=== PATIENT | male | born 1950 | race Caucasian/White ===

== ENCOUNTER 2018-12-29 09:39 | Emergency (ER) | payer OTHER, MEDICARE ==
--- NOTE | 2018-12-29 10:20 | ER Document Report ---
ED General - General Chief Complaint: Testicular Pain Stated Complaint: TESTICULAR PAIN Time Seen by Provider: 12/29/18 10:04 Primary Care Provider: DANIE SHOOK MD [NO LOCAL MD] - Follow up as needed Notes: 68 male history of prostate cancer status post prostatectomy in 2010 [facility] for chief complaint of left testicular pain x2 weeks. He said it is been intermittent but got acutely worse over the last 2 to 3 days to the point where he needed to seek treatment. He denies any redness, swelling to his testicles. He denies any abnormal penile discharge. He denies any fevers or chills, he denies any lower abdominal pain. He said that it hurts when he will sit up from laying but only intermittently. He states "I have a vigorous sex life with my girlfriend". No other complaints. TRAVEL OUTSIDE OF THE [place] IN LAST 30 DAYS: No - Related Data Allergies/Adverse Reactions: No Known Allergies Allergy (Verified 12/29/18 11:20) Past Medical History - Social History Smoking Status: Unknown if Ever Smoked Family History: None Review of Systems - Review of Systems Constitutional: See HPI EENT: No symptoms reported Cardiovascular: No symptoms reported Respiratory: No symptoms reported Gastrointestinal: See HPI Genitourinary: See HPI Male Genitourinary: See HPI Musculoskeletal: No symptoms reported Skin: No symptoms reported Hematologic/Lymphatic: No symptoms reported Neurological/Psychological: No symptoms reported Physical Exam - Vital signs Vitals: Temp Pulse Resp BP Pulse Ox 98.1 F 82 14 144/88 H 98 12/29/18 09:44 12/29/18 09:44 12/29/18 09:44 12/29/18 09:44 12/29/18 09:44 - Notes Notes: PHYSICAL EXAMINATION: Reviewed vital signs and charting by RN GENERAL: Alert, interacts well. No acute distress. HEAD: Normocephalic, atraumatic. EYES: Pupils equal and round. Extraocular movements intact. ENT: Oral mucosa moist, tongue midline. NECK: Full range of motion. Trachea midline. ABDOMEN: soft, non-tender. No distention. Bowel sounds present : Left testicle high riding partially retracted into the inguinal canal, no redness, no swelling, right testicle is vertical hanging, no tenderness to palpation of bilateral testicles, no redness, inflammation, purulent discharge of the meatus EXTREMITIES: Moves all 4 extremities spontaneously. No edema, No cyanosis. PSYCH: Normal affect, normal mood. SKIN: Warm, dry, normal turgor. No rashes or lesions noted. Course - Re-evaluation Re-evalutation: 12/29/18 10:20 Generally well-appearing. Plan is to order a scrotal ultrasound get some basic blood work and get a urinalysis. 12/29/18 12:48 Ultrasound showed probable epididymitis, no masses or concerning lesions. Lab work all normal. - Vital Signs Vital signs: Temp Pulse Resp BP Pulse Ox 98.1 F 82 14 144/88 H 98 12/29/18 09:44 12/29/18 09:44 12/29/18 09:44 12/29/18 09:44 12/29/18 09:44 - Laboratory Result Diagrams: 12/29/18 10:36 12/29/18 10:36 Laboratory results interpreted by me: 12/29/18 10:36 BUN 25 H Discharge - Discharge Clinical Impression: Epididymitis Condition: Good Disposition: HOME, SELF-CARE Additional Instructions: You were seen in the emergency department this afternoon for epididymitis. That is an inflammation of the epididymis and his caused by bacteria. He will be treated with a medication called levofloxacin. He got your first dose here. Like we talked about please be cautious of side effects of the levofloxacin which can include weakening of the tendons. It is a 10-day treatment course and please take the antibiotics until they are complete. Also please return to the emergency department if you have any concerning symptoms like purulent discharge from your penis, blood coming from your penis, severe flank pain or worsening testicular pain through the course of this treatment. Also return to the emergency department if you develop fevers, chills, intractable nausea or vomiting, severe intractable abdominal pain. Referrals: DANIE SHOOK MD [NO LOCAL MD] - Follow up as needed
[2018-12-29 10:54] LABS: APPEARANCE,URINE CLEAR; BILIRUBIN,URINE NEGATIVE (NEGATIVE); COLOR,URINE YELLOW; GLUCOSE, URINE NEGATIVE (NEGATIVE); KETONES,URINE NEGATIVE (NEGATIVE); LEUKOCYTE ESTERASE,URINE NEGATIVE (NEGATIVE); NITRITE,URINE NEGATIVE (NEGATIVE); PROTEIN,URINE NEGATIVE (NEGATIVE); URINE SPECIFIC GRAVITY 1.019; UROBILINOGEN,URINE NEGATIVE mg/dL (<2.0)
[2018-12-29 10:55] LABS: ABSOLUTE BASOPHILS # (AUTO) 0.1 10^3/uL (0.0-0.2); ABSOLUTE EOSINOPHILS # (AUTO) 0.3 10^3/uL (0.0-0.6); ABSOLUTE LYMPHOCYTES (AUTO) 2.1 10^3/uL (0.5-4.7); ABSOLUTE MONOCYTES (AUTO) 0.6 10^3/uL (0.1-1.4); ABSOLUTE NEUT (AUTO) 3.5 10^3/uL (1.7-8.2); EOSINOPHILS % (AUTO) 4.3 % (0-6); HEMATOCRIT 44.9 % (37.9-51.0); HEMOGLOBIN 15.3 g/dL (13.5-17.0); LYMPHOCYTES % (AUTO) 31.7 % (13-45); MEAN CORPUSCULAR HEMOGLOBIN 30.3 pg (27.0-33.4); MEAN CORPUSCULAR VOLUME 89 fl (80-97); MONOCYTES % (AUTO) 8.7 % (3-13); PLATELET COUNT 309 10^3/uL (150-450); RED BLOOD COUNT 5.04 10^6/uL (4.35-5.55); RED CELL DISTRIBUTION WIDTH 13.4 % (11.5-14.0); SEGMENTED NEUTROPHILS % (AUTO) 53.3 % (42-78); TOTAL CELLS COUNTED % (AUTO) 100 %; WHITE BLOOD COUNT 6.6 10^3/uL (4.0-10.5)
[2018-12-29 11:14] LABS: ALANINE AMINOTRANSFERASE 31 U/L (21-72); ALBUMIN 4.3 g/dL (3.5-5.0); ALKALINE PHOSPHATASE 44 U/L (38-126); ANION GAP 9 (5-19); ASPARTATE AMINO TRANSFERASE 24 U/L (17-59); BILIRUBIN,DIRECT 0.2 mg/dL (0.0-0.4); BILIRUBIN,TOTAL 0.6 mg/dL (0.2-1.3); BLOOD UREA NITROGEN 25 mg/dL (7-20); CALCIUM 9.7 mg/dL (8.4-10.2); CARBON DIOXIDE 26 mmol/L (22-30); CHLORIDE 104 mmol/L (98-107); GLUCOSE 99 mg/dL (75-110); POTASSIUM 4.5 mmol/L (3.6-5.0); SODIUM 139.1 mmol/L (137-145); TOTAL PROTEIN 7.5 g/dL (6.3-8.2)
--- NOTE | 2018-12-29 12:26 | RADIOLOGY REPORT (SQ) ---
EXAM DESCRIPTION: U/S SCROTUM W/DOPPLER COMPLETED DATE/TIME: 12/29/2018 12:05 pm REASON FOR STUDY: L testicular pain/high riding COMPARISON: None. TECHNIQUE: Static and realtime rodrigez scale imaging of the scrotum and testes. Selected color Doppler and spectral images recorded to document blood flow. LIMITATIONS: None. FINDINGS: RIGHT: TESTICLE: Normal size, 3.7 x 2.9 x 2.7 cm. Normal echotexture. Normal blood flow. No mass. EPIDIDYMIS: Slightly prominent, 15 mm. Epididymal tail is heterogeneous. HYDROCELE OR VARICOCELE: No. HERNIA OR EXTRA-TESTICULAR MASS: No. OTHER: No other significant finding. LEFT: TESTICLE: Normal size, 3.1 x 2.3 x 1.9 cm. Normal echotexture. Normal blood flow. No mass. EPIDIDYMIS: Normal size, 10 mm. Epididymal tail is slightly heterogeneous. HYDROCELE OR VARICOCELE: No. HERNIA OR EXTRA-TESTICULAR MASS: No. OTHER: No other significant finding. IMPRESSION: The right epididymal head is slightly prominent at 15 mm. Each epididymal tail is heter ogeneous. Correlate for epididymitis. TECHNICAL DOCUMENTATION: JOB ID: [id number] [employer]- All Rights Reserved Reading location - IP/workstation name: [email or web address]
[2018-12-29] MEDS ORDERED: LEVOFLOXACIN 500 MG TABLET PO ONE (12:51)
[2018-12-29 13:06] VITALS: BP 143/90
== END 2018-12-29 13:06 | disposition home or self-care (01) ==
LOC: ER 09:39
DX: N45.1 Epididymitis (principal)
CPT/HCPCS: 36415; 76870; 80053; 81001; 85025; 93976; 99284